=== PATIENT | male | born 2000 ===

== ENCOUNTER 2024-12-27 08:00 | Outpatient (CLI) | payer OTHER ==
[~2024-12-27] VITALS: Ht 165.1 cm; Wt 65.3 kg
[2024-12-27 07:45] LABS: BASO % 1.3 % (0.1-1.2); EOS # 0.10 (0.04-0.54); EOS % 1.6 % (0.7-7.0); LYMPH # 1.68 (1.18-3.74); LYMPH % 26.9 % (19.3-53.1); MEAN PLATELET VOLUME 9.20 fl (9.4-12.4); MONO # 0.51 (0.24-0.82); MONO % 8.2 % (4.7-12.5); NEUT # 3.86 (1.56-6.13); NEUT % 61.7 % (34.0-71.1); RED CELL DISTRIBUTION WIDTH 12.4 % (11.6-14.4)
[2024-12-27 08:08] LABS: URINE APPEARANCE Clear; URINE BACTERIA 67.1 uL (0.0-1933); URINE BILIRRUBIN Negative (NEGATIVE); URINE BLOOD Moderate; URINE COLOR Yellow; URINE EPITHELIAL CELLS 2.3 uL (0.0-38.8); URINE GLUCOSE Negative (NEGATIVE); URINE KETONE Negative (NEGATIVE); URINE LEUKOCYTE Trace; URINE NITRATE Negative; URINE PROTEIN Negative (NEGATIVE); URINE RBC 20.0 uL (0.0-20.8); URINE UROBILINOGEN 0.2 E.U./dl; URINE WBC 11.8 uL (0.0-23.2)
[2024-12-27 08:14] VITALS: BP 132/88
[2024-12-27 08:37] LABS: URINE CAST 0.00 uL (0.0-1.40)
[2024-12-27 08:47] LABS: INR 1.03
[2024-12-27 08:56] LABS: BUN CREA RATIO 22.0 (7.0-25.0); COVID-19 AG NEGATIVE (NEGATIVE); CREATININE SERUM 0.67 mg/dL (0.70-1.30); GFR 144.53; GLUCOSE FASTING 107.0 mg/dL (65-100); OSMOLALITY SERUM 281.0 MOSM/KG (275-295)
== END 2024-12-27 08:10 | disposition home or self-care (01) ==
LOC: RAD 08:00 → SURH 12-31 07:00 → EDSTATUS 12-31 07:00
PROVIDERS: ATTEND Urology
DX: C64.1 Malignant neoplasm of right kidney, except renal pelvis (principal); R31.0 Gross hematuria